=== PATIENT | female | born 1950 | race Caucasian/White ===

== ENCOUNTER 2019-10-08 17:09 | Emergency (ER) | payer MEDICARE, BC ==
[~2019-10-08] VITALS: Ht 167.6 cm; Wt 135.0 kg
[2019-10-08] MEDS ORDERED: dexamethasone sod phosphate 10mg/ml inj IV STA (20:14)
[2019-10-08] MEDS ORDERED: ondansetron/PF 4mg/2ml inj IV ONE (20:15)
[2019-10-08] MEDS ORDERED: normal saline 1000ML IV soln IVB ONE (20:15)
[2019-10-08] MEDS ORDERED: ketorolac trometh. 30mg/ml inj. IV ONE (20:15)
[2019-10-08 20:46] LABS: BASOPHILS % (AUTO) 0.5 % (0-1); EOSINOPHILS # (AUTO) 0.2 X10'3 (0-0.9); EOSINOPHILS % (AUTO) 1.8 % (0-6); HEMATOCRIT 47.3 % (35.0-45.0); HEMOGLOBIN 16.2 g/dl (12.0-16.0); LYMPHOCYTES # (AUTO) 2.8 X10'3 (1.1-4.8); LYMPHOCYTES % (AUTO) 30.2 % (21-51); MEAN CORPUSCULAR HEMOGLOBIN 31.1 PG (27.0-31.0); MEAN CORPUSCULAR HGB CONC 34.2 g/dL (33.0-36.5); MEAN CORPUSCULAR VOLUME 90.8 FL (78-98); MONOCYTES # (AUTO) 0.6 X10'3 (0-0.9); MONOCYTES % (AUTO) 6.5 % (2-12); NEUTROPHILS # (AUTO) 5.7 X10'3 (1.8-7.7); PLATELET COUNT 287 X10'3 (140-440); RED BLOOD COUNT 5.22 X10'6 (4.20-5.60); RED CELL DISTRIBUTION WIDTH 14.8 % (11.5-14.5); WHITE BLOOD COUNT 9.3 X10'3 (4.5-11.0)
[2019-10-08] MEDS ORDERED: PRED20TA PO (20:50)
[2019-10-08] MEDS ORDERED: DIAZ-351 PO (20:50)
[2019-10-08] MEDS ORDERED: diazepam inj 5 MG/ML inj. IV ONE (20:50)
[2019-10-08 21:00] LABS: ALANINE AMINOTRANSFERASE 38 U/L (12-78); ALBUMIN 4.2 G/DL (3.4-5.0); ALBUMIN/GLOBULIN RATIO 1.1 (1.1-1.5); ALKALINE PHOSPHATASE 102 IU/L (46-116); ANION GAP 10 (8-16); ASPARTATE AMINO TRANSFERASE 31 U/L (10-37); BILIRUBIN,TOTAL 0.7 MG/DL (0.1-1.0); BLOOD UREA NITROGEN 12 MG/DL (7-18); BUN/CREATININE RATIO 14.3 (6.6-38.0); CALCIUM 9.5 MG/DL (8.5-10.1); CHLORIDE 105 MMOL/L (99-107); CREATININE 0.84 MG/DL (0.40-0.90); GLUCOSE 118 MG/DL (70-104); LIPASE 139 U/L (73-393); POTASSIUM 4.1 MMOL/L (3.5-5.1); SODIUM 141 MMOL/L (135-145); TOTAL CARBON DIOXIDE 26.4 MMOL/L (24-32); TOTAL PROTEIN 8.1 G/DL (6.4-8.2); eGFR 67 ML/MIN
[2019-10-08 21:18] LABS: CLARITY,URINE CLEAR (Clear); COLOR,URINE YELLOW (Yellow); GLUCOSE, URINE NEGATIVE (Neg); KETONES,URINE NEGATIVE (Neg); LEUKOCYTE ESTERASE ,URINE NEGATIVE (Neg); NITRITES, URINE NEGATIVE (Neg); OCCULT BLOOD,URINE NEGATIVE (Neg); PROTEIN,URINE NEGATIVE (Neg); UROBILINOGEN,URINE 0.2 E.U/dL (0.2-1.0)
[2019-10-08 21:22] LABS: UA COLLECTION TYPE CLN CATCH MIDSTREAM
[2019-10-08 21:41] VITALS: BP 161/69
== END 2019-10-08 21:43 | disposition home or self-care (01) ==
LOC: ER 17:10
DX: M54.41 Lumbago with sciatica, right side (principal); Z88.0 Allergy status to penicillin; Z79.2 Long term (current) use of antibiotics; Z79.899 Other long term (current) drug therapy
CPT/HCPCS: 36415; 74176; 80053; 81003; 83690; 85025; 96374; 96375; 99285; J1100; J1885; J2405; J3360; J7030; 99284

== ENCOUNTER 2023-06-08 13:01 | Emergency (ER) | payer MEDICARE, BC ==
[~2023-06-08] VITALS: Ht 172.7 cm; Wt 141.8 kg
[~2023-06-08 13:01] MED LIST: DIAZ-351 PO
--- NOTE | 2023-06-08 15:04 | NUR ---
PT STATES 6/10 LEFT LEG PAIN
--- NOTE | 2023-06-08 15:05 | NUR ---
PT BP 231/84
--- NOTE | 2023-06-08 15:10 | NUR ---
notified Dr. Salazar of pt high blood pressure.
--- NOTE | 2023-06-08 15:36 | NUR ---
CLINICAL EDUCATION ASSISTANT AT BEDSIDE.
[2023-06-08] MEDS ORDERED: CYCL-1 PO (16:12)
[2023-06-08] MEDS ORDERED: ibuprofen tablet 400 MG TABLET PO ONE (16:15)
[2023-06-08] MEDS ORDERED: cyclobenzaprine 10mg tablet PO ONE (16:15)
[2023-06-08 16:45] VITALS: BP 178/90; PULSE 69; RESP 13; TEMP 98; O2SAT 99
== END 2023-06-08 16:55 | disposition home or self-care (01) ==
LOC: ER 13:02
DX: M79.605 Pain in left leg (principal); M71.22 Synovial cyst of popliteal space [Baker], left knee; I10 Essential (primary) hypertension; Z88.0 Allergy status to penicillin; Z91.041 Radiographic dye allergy status; Z79.899 Other long term (current) drug therapy
CPT/HCPCS: 93971; 99285

== ENCOUNTER 2024-06-25 11:52 | Emergency (ER) | payer MEDICARE, BC ==
[~2024-06-25 11:52] MED LIST changes: +CYCL-1 PO
[2024-06-25 11:57] VITALS: TEMP 98
[2024-06-25] MEDS ORDERED: LATA2.5D14 EACHEYE (12:51)
[2024-06-25] MEDS ORDERED: TIMO5DRO45 (12:51)
[2024-06-25] MEDS ORDERED: ACET1TAB93 PO (12:51)
[2024-06-25] MEDS ORDERED: DILT300C53 PO (12:51)
[2024-06-25 13:09] VITALS: RESP 16
[2024-06-25] MEDS: HYDROcodone/acetaminophen 5mg/325mg tablet PO ONE (13:09)
[2024-06-25 13:32] LABS: BASOPHILS # (AUTO) 0.1 X10'3 (0-0.2); BASOPHILS % (AUTO) 0.7 % (0-1); EOSINOPHILS # (AUTO) 0.2 X10'3 (0-0.9); EOSINOPHILS % (AUTO) 2.9 % (0-6); HEMATOCRIT 45.7 % (35.0-45.0); HEMOGLOBIN 15.3 g/dl (12.0-16.0); LYMPHOCYTES # (AUTO) 2.2 X10'3 (1.1-4.8); MEAN CORPUSCULAR HEMOGLOBIN 31.2 PG (27.0-31.0); MEAN CORPUSCULAR HGB CONC 33.3 g/dL (33.0-36.5); MEAN CORPUSCULAR VOLUME 93.6 FL (78-98); MEAN PLATELET VOLUME 7.2 FL (7.4-10.4); MONOCYTES # (AUTO) 0.6 X10'3 (0-0.9); MONOCYTES % (AUTO) 7.3 % (2-12); NEUTROPHILS # (AUTO) 4.5 X10'3 (1.8-7.7); NEUTROPHILS % (AUTO) 60.1 % (42-75); PLATELET COUNT 320 X10'3 (140-440); RED BLOOD COUNT 4.89 X10'6 (4.20-5.60); RED CELL DISTRIBUTION WIDTH 14.3 % (11.5-14.5); WHITE BLOOD COUNT 7.6 X10'3 (4.5-11.0)
[2024-06-25 13:42] LABS: ALBUMIN 3.9 G/DL (3.4-5.0); ANION GAP 7 (8-16); BLOOD UREA NITROGEN 10 MG/DL (7-18); BUN/CREATININE RATIO 13.3 (10.0-20.0); CALCIUM 9.5 MG/DL (8.5-10.1); CHLORIDE 103 MMOL/L (99-107); CREATININE 0.75 MG/DL (0.40-0.90); GLUCOSE 97 MG/DL (70-104); SODIUM 139 MMOL/L (135-145); TOTAL CARBON DIOXIDE 28.7 MMOL/L (24-32); eGFR 76 ML/MIN
[2024-06-25 13:44] VITALS: BP 181/78; PULSE 53; O2SAT 99
== END 2024-06-25 14:40 | disposition home or self-care (01) ==
LOC: ER 11:52
DX: I10 Essential (primary) hypertension (principal); M54.50 Low back pain, unspecified; G47.30 Sleep apnea, unspecified; Z88.0 Allergy status to penicillin; Z88.1 Allergy status to other antibiotic agents; Z79.891 Long term (current) use of opiate analgesic
CPT/HCPCS: 36415; 80048; 84484; 85025; 93005; 99284